=== PATIENT | male | born 1985 | race Caucasian/White ===

== ENCOUNTER 2019-06-20 07:52 | Emergency (ER) | payer SELFPAY ==
[2019-06-20 07:57] VITALS: BP 135/88; PULSE 52; RESP 16; TEMP 36.6; O2SAT 99; BMI 27.8
--- NOTE | 2019-06-20 08:05 | ED.DENTAL ---
HPI - Dental/Oral General Chief complaint: Dental/Oral Stated complaint: Nerve pain in face due to broken tooth Time Seen by Provider: 06/20/19 07:53 Source: patient Mode of arrival: ambulatory Limitations: no limitations History of Present Illness HPI Narrative: 33-year-old male here for evaluation of right upper dental pain. He states that it has been hurting for the past several days. He states he has had pain like this in the past. Has not seen a dentist. He states that he is getting his insurance ?squared away ?currently but plans to see a dentist sometime this week. No fevers. He states that hot and cold and air hurts his tooth. Related Data Previous Rx's Medication Instructions Recorded diazepam [Valium] 5 mg PO Q8HP PRN #10 tab 07/09/16 hydrocodone-acetaminophen [[place]] 1 tab PO Q6HP PRN #10 tab 07/09/16 ibuprofen 800 mg PO TIDP PRN #30 tab 07/09/16 ibuprofen 600 mg PO Q6HP PRN #20 tab 08/02/16 tramadol 50 mg PO Q6HP PRN #10 tab 06/21/17 penicillin V potassium 500 mg PO QID 7 Days #28 tab 06/20/19 tramadol [Ultram] 50 mg PO Q8H PRN #14 tab 06/20/19 Review of Systems Constitutional Constitutional: Denies fever(s) ENT Ears, Nose, Mouth, and Throat: Reports dental pain, Reports mouth pain, Denies throat swelling and Denies tongue swelling Respiratory Respiratory: Denies cough Integumentary/Breasts Skin/Breast: Denies lesions and Denies rash Hematologic/Lymphatic Hematologic/Lymphatic: Denies easy bleeding and Denies easy bruising Allergic/Immunologic Allergic/Immunologic: Denies throat swelling and Denies tongue swelling [facility] Medical History Patient denies medical problems (Inactive) Social History Smoking Status: Current every day smoker Social History Smoking Status: Current every day smoker Exam Initial Vital Signs Initial Vital Signs: Vital Signs Temperature 97.9 F 06/20/19 07:57 Pulse Rate 52 L 06/20/19 07:57 Respiratory Rate 16 06/20/19 07:57 Blood Pressure 135/88 06/20/19 07:57 Pulse Oximetry 99 06/20/19 07:57 Const General: cooperative, well developed and well groomed Orientation: alert and awake HENMT Ears: TM's normal bilaterally Nose: external nose normal Face and sinus: normal facial exam Mouth: moist mucous membranes and No drooling Teeth and gingiva: gingiva normal, caries and poor dentition Throat: posterior oropharynx normal Resp Effort & Inspection: normal respiratory effort Auscultation: clear to auscultation bilaterally Cardio Rate: regular rate Rhythm: regular rhythm Skin Lesions: no lesions Rashes: no rashes Neuro General: alert and awake Cognition: normal cognition Speech: speech normal Extrem General: normal to inspection and capillary refill normal Course Vital Signs Vital signs: Vital Signs - 8 hr 06/20/19 07:57 Temperature 97.9 F Pulse Rate 52 L Respiratory Rate 16 Blood Pressure 135/88 Pulse Oximetry 99 MDM - Dental/Oral MDM Narrative Medical decision making narrative: Patient has poor dentition. He does have a fractured right upper posterior molar. There is no defined drainable abscess here in the emergency department. Has no cellulitis. Will send home with antibiotics and pain medication. We did discuss the use of anti-inflammatories. Informed him that he did need to see a dentist for definitive care. Offered him a dental block however the patient declined. He was given return precautions and follow-up instructions. He expressed understanding and agreement with plan. Discharge Plan Departure Patient Disposition: Home Clinical Impression: Pain, dental Instructions: Tooth Abscess, DI for Dental Pain Activity Restrictions/Additional Instructions: I recommend that you start on a regular course of anti-inflammatories such as Motrin or Naprosyn. You can buy this [id number]. Take the medications as directed. Tomorrow you do need to call a dentist for definitive treatment. Return to the emergency department for new or worsening symptoms Prescriptions: New tramadol [Ultram] 50 mg tablet 50 mg PO Q8H PRN (Reason: pain) Qty: 14 RF: 0 penicillin V potassium 500 mg tablet 500 mg PO QID 7 Days Qty: 28 RF: 0 No Action ibuprofen 800 MG tablet 800 mg PO TIDP PRNQty: 30 RF: 0 hydrocodone-acetaminophen [[place]] 5 MG/325 MG tablet 1 tab PO Q6HP PRNQty: 10 RF: 0 diazepam [Valium] 5 MG tablet 5 mg PO Q8HP PRNQty: 10 RF: 0 ibuprofen 600 MG tablet 600 mg PO Q6HP PRNQty: 20 RF: 0 tramadol 50 MG tablet 50 mg PO Q6HP PRNQty: 10 RF: 0
== END 2019-06-20 08:18 | disposition home or self-care (01) ==
PROVIDERS: Emergency Provider Emergency Medicine
DX: K08.89 Other specified disorders of teeth and supporting structures (principal)
CPT/HCPCS: 99282

== ENCOUNTER 2021-07-01 08:25 | Emergency (ER) | payer OTHER, MEDICAID, SELFPAY ==
[2021-07-01 08:31] VITALS: BP 156/96; PULSE 76; RESP 12; TEMP 36.1; O2SAT 97; BMI 26.1
--- NOTE | 2021-07-01 08:58 | ED_ITS ---
HPI - Ear Problem General Chief complaint: Ear Stated complaint: left ear pain for a week Time Seen by Provider: 07/01/21 09:05 Source: patient Mode of arrival: Ambulatory History of Present Illness HPI Narrative: Patient complains of left ear pain for the past 1 week. Denies any drainage no fever. No prior history ear surgery as a child. Or ear infections. Denies any injury to the ear. Patient states he has developed intolerance in ability to swim under water even shallow depths and causes ear pain. Denies any recent water exposure. Denies any oral or dental pain. Has slight decreased hearing in the left ear. No ringing of the ears. Patient describes pain just medial to the tragus/just before the entrance of the external canal of the left ear. No redness. No swelling. Occasional relief with ibuprofen at home. Related Data Previous Rx's Medication Instructions Recorded diazepam 5 mg tablet (Valium) 5 mg PO Q8HP PRN #10 tab 07/09/16 hydrocodone 5 mg-acetaminophen 325 1 tab PO Q6HP PRN #10 tab 07/09/16 mg tablet ([place]) ibuprofen 800 mg tablet 800 mg PO TIDP PRN #30 tab 07/09/16 ibuprofen 600 mg tablet 600 mg PO Q6HP PRN #20 tab 08/02/16 tramadol 50 mg tablet 50 mg PO Q6HP PRN #10 tab 06/21/17 tramadol 50 mg tablet (Ultram) 50 mg PO Q8H PRN #14 tab 06/20/19 hydrocodone 5 mg-acetaminophen 325 1 tab PO Q6H PRN #7 tab 07/01/21 mg tablet methylprednisolone 4 mg tablets in See Rx Instructions .ROUTE 07/01/21 a dose pack (Medrol ([place]leg)) .COMPLEX #21 each Allergies Allergy/AdvReac Type Severity Reaction Status Date / Time No Known Drug Allergies Allergy Verified 07/01/21 08:34 Review of Systems Review of Systems Narrative: GENERAL: Denies chills, fatigue, malaise, fever, sweats. HEENT: Denies sinus pain, complains ear pain, denies sore throat RESPIRATORY: Denies dyspnea, cough GASTROINTESTINAL: Denies nausea MUSCULOSKELETAL: denies muscle or bony pain SKIN: Denies rash, skin lesions NEUROLOGIC: Denies weakness, numbness ROS Unobtainable: All systems reviewed & are unremarkable except as noted in HPI and below Patient History Medical History (Updated 07/01/21 @ 09:47 by Cedric Pepe MD) Patient denies medical problems Social History Smoking Status: Current every day smoker Smoking Status: Current every day smoker alcohol intake frequency: a few times a month Substance Use Type: marijuana Exam Narrative Exam Narrative: GENERAL: in no distress, not toxic not dyspneic HEAD: Normocephalic. EYES: Pupils equal round No scleral icterus. No injection no discharge ENT: Mucous membranes moist. Examination of the right ear. Nontender tragus. No edema swelling discharge in the external canal. TM is clear. Examination of the left ear. Able to hear whispering and rubbing of the gloves with occlusion of the right external canal. With patient's finger. There is no tenderness of the tragus. No erythema of the external ear. Examination of the external canal there is wax buildup on the posterior surface of the canal. After extensive irrigation with peroxide/saline combination, able to loosen large wax ball. However still needed to use [place] catheter balloon to remove wax ball.. Able to visualize remaining external canal and tympanic membrane. TM is intact. No effusion. No discharge of the canal. No edema swelling of the canal. No abscess or cyst or lesion seen. Hearing remains intact. No bleeding. NECK: Trachea midline. NEURO: AOx4. SKIN: Warm and dry PSYCH: Not anxious, is cooperative Initial Vital Signs Initial Vital Signs: Vital Signs Temperature 96.9 F L 07/01/21 08:31 Pulse Rate 76 07/01/21 08:31 Respiratory Rate 12 07/01/21 08:31 Blood Pressure 156/96 H 07/01/21 08:31 Pulse Oximetry 97 07/01/21 08:31 Course Course Course Narrative: No new issues during course of stay in treatment. No loss of hearing or bleeding. Orders Ordered: Discontinued Medications Hydrogen Peroxide/Benzyl Alcohol (Hydrogen Peroxide 473 Ml Solution) 30 ml TOP NOW ONE Stop: 07/01/21 08:59 Last Admin: 07/01/21 09:21 Dose: 30 ml Documented by: CHAD Prednisone (Prednisone 20 Mg Tablet) 40 mg PO NOW ONE Stop: 07/01/21 09:47 Last Admin: 07/01/21 09:52 Dose: 40 mg Documented by: CHAD Reevaluation(s) Reevaluation #1: Reviewed results with patient after irrigation and wax removal. At this time patient agrees with pain medication. No dissections in the past or problems with pain medication. Agrees with steroid trial as well as there is no signs of infection. May be neurologic in origin, possible trigeminal neuralgia Time: 09:51 Vital Signs Vital signs: Vital Signs - 8 hr 07/01/21 08:31 Temperature 96.9 F L Pulse Rate 76 Respiratory Rate 12 Blood Pressure 156/96 H Pulse Oximetry 97 Medical Decision Making Differential Diagnosis Differential Diagnosis: Otitis media otitis externa, perforated eardrum, abscess, trigeminal neural MDM Narrative Medical decision making narrative: Appropriate for discharge home. Exam reassuring, no signs of infection. No abscess. Possibly trigeminal neuralgia in origin. Patient agrees treatment trial of steroid pack and to follow-up with otolaryngology. No problems with addiction to pain medication the past. Return precautions reviewed patient. Work note provided. Not toxic discharge. Discharge Plan Departure Patient Disposition: Home Clinical Impression: Acute pain of left ear Instructions: DI for Ear Pain-Adult Activity Restrictions/Additional Instructions: Call provided otolaryngology office, Dr. kessler, today for office recheck within a week. Be sure to keep your free of moisture in water or any Q-tips. Return if worsening questions or concerns. Continue steroid pack tomorrow. No driving operating machinery would take prescribed pain medication. May supplement with ibuprofen for your pain. Use [id number] ibuprofen Prescriptions: New hydrocodone-acetaminophen 5-325 mg tablet 1 tab PO Q6H PRN (Reason: pain) Qty: 7 RF: 0 methylprednisolone [Medrol ([place]leg)] 4 mg tablets,dose pack See Rx Instructions .ROUTE .COMPLEX Qty: 21 RF: 0 No Action ibuprofen 800 MG tablet 800 mg PO TIDP PRNQty: 30 RF: 0 hydrocodone-acetaminophen [[place]] 5 MG/325 MG tablet 1 tab PO Q6HP PRNQty: 10 RF: 0 diazepam [Valium] 5 MG tablet 5 mg PO Q8HP PRNQty: 10 RF: 0 ibuprofen 600 MG tablet 600 mg PO Q6HP PRNQty: 20 RF: 0 tramadol 50 MG tablet 50 mg PO Q6HP PRNQty: 10 RF: 0 tramadol [Ultram] 50 mg tablet 50 mg PO Q8H PRN (Reason: pain) Qty: 14 RF: 0 Referrals: Omid Kessler MD [Physician] - Stand Alone Forms: Work Release Note
[2021-07-01] MEDS: HYDROGEN PEROXIDE 473 ML SOLUTION 30 ML TOP (09:21)
--- NOTE | 2021-07-01 09:22 | PC.NURSE ---
Earwax impaction noted in left Ear canal
[2021-07-01] MEDS: predniSONE 20 MG TABLET 40 MG PO (09:52)
== END 2021-07-01 10:06 | disposition home or self-care (01) ==
PROVIDERS: Emergency Provider Emergency Medicine
DX: H92.02 Otalgia, left ear (principal)
CPT/HCPCS: 69209; 99283; 99284

== ENCOUNTER 2022-08-07 14:20 | Emergency (ER) | payer OTHER, MEDICAID, SELFPAY ==
[2022-08-07 14:24] VITALS: BP 153/111; PULSE 95; RESP 18; TEMP 35.9; O2SAT 98; BMI 27.5
--- NOTE | 2022-08-07 14:27 | PC.NURSE ---
pt states he has been drinking a 5th of vodka.
--- NOTE | 2022-08-07 16:17 | PC.NURSE ---
Patient not located in lobby, tile setter supervisor called and voicemail left to update patient it was his turn.
== END 2022-08-07 16:23 | disposition left against medical advice (07) ==
PROVIDERS: Emergency Provider Emergency Medicine
CPT/HCPCS: 99281

== ENCOUNTER 2022-08-09 14:03 | Emergency (ER) | payer OTHER, MEDICAID, SELFPAY ==
--- NOTE | 2022-08-09 14:04 | ED.BACK ---
HPI - Back Pain/Injury <John Burnett PA-C - Last Filed: 08/09/22 16:14> General Chief Complaint: Psychiatric Symptoms Stated Complaint: Back Pain History of Present Illness HPI Narrative: Patient is a 36-year-old male who presents to the emergency room today with chief complaint of back pain for about 2 days. The suicide about 3 days ago and workup 2 days ago with back pain. Describes back pain as being in his mid lower back is slightly radiates to the left. States it also radiates down his left side with left knee and left foot. Describes the pain right now is being about a 4 5 and at its worst about an 8 or 9. States the pain is made worse with standing and walking and made better with sitting and lying. Denies any loss of bowel or bladder function and denies any urinary symptoms. Patient states he had this type of back pain about 5 years ago that was relieved with muscle relaxers. Patient has a secondary complaint of depression anxiety and feeling of helplessness. States he is going through a divorce and he is afraid of losing his and his 7-year-old child. Also states that he been drinking a lot and would like something to help stop drinking and would also want to talk to someone about the drinking. Also elect to talk to someone about depression. Does not have a PCP and would like to be referred to 1. Last states he is not really want to harm himself he just wants to start feeling this way. Related Data Previous Rx's Medication Instructions Recorded diazepam 5 mg tablet (Valium) 5 mg PO Q8HP PRN #10 tabs 07/09/16 hydrocodone 5 mg-acetaminophen 325 1 tab PO Q6HP PRN #10 tabs 07/09/16 mg tablet ([place]) ibuprofen 800 mg tablet 800 mg PO TIDP PRN #30 tabs 07/09/16 ibuprofen 600 mg tablet 600 mg PO Q6HP PRN #20 tabs 08/02/16 tramadol 50 mg tablet 50 mg PO Q6HP PRN #10 tabs 06/21/17 tramadol 50 mg tablet (Ultram) 50 mg PO Q8H PRN pain #14 tabs 06/20/19 hydrocodone 5 mg-acetaminophen 325 1 tab PO Q6H PRN pain #7 tabs 07/01/21 mg tablet methylprednisolone 4 mg tablets in See Rx Instructions PO .COMPLEX 07/01/21 a dose pack (Medrol (Oleg)) #21 ea methocarbamol 750 mg tablet 750 mg PO TID #15 tabs 08/09/22 Allergies Allergy/AdvReac Type Severity Reaction Status Date / Time No Known Drug Allergies Allergy Verified 08/09/22 14:08 Review of Systems <John Burnett PA-C - Last Filed: 08/09/22 16:14> Review of Systems Narrative: R.O.S.: General: No fever, chills or fatigue. Cardiovascular: No chest pain or palpitations Respiratory: No S.O.B. HEENT: No congestion, ear pain, rhinorrhea, sore throat or tinnitus Gastrointestinal: No nausea or vomiting : No urinary concerns Skin: No rash or associated abnormalities Musculoskeletal: Back pain Neurological: Awake, alert. Depression and suicidal ideations. Patient History <John Burnett PA-C - Last Filed: 08/09/22 16:14> Medical History (Updated 08/09/22 @ 16:00 by John Burnett PA-C) Patient denies medical problems Social History Smoking Status: Current every day smoker Smoking Status: Current every day smoker alcohol intake frequency: 3 or more drinks per day Substance Use Type: marijuana Exam <John Burnett PA-C - Last Filed: 08/09/22 16:14> Narrative Exam Narrative: Physical Exam: ? General: normal appearance, well developed, well nourished, alert, and awake. Not in acute distress. ? Head: Normocephalic, no lesions. Chest: Lungs CTAB, no rales, rhonchi or wheezes. ?? Heart: RRR, no murmurs, rubs or gallops. Eyes: PERRLA, EOM's full, conjunctivae clear. ? Neuro: Physiological, no localizing findings, CN3-12 intact. ?? Extremities/back: Patient has bilateral paraspinal tenderness at the lower lumbar superior buttocks crease area. Patient also has positive straight leg raise on the left side. Patient able to tandem walk but with difficulty. Patient unable to tiptoe walk or heel walk. DTRs intact at patellar tendons. Patient also has intact sensation to touch in the bilateral lower extremities. ? ? Skin: Normal, no rashes, no lesions noted. ?? PSYCHIATRIC: The mood is good, no blunted affect. Speech is clear. Thought process is linear, thought content is appropriate. The voice is without significant inflection. Gastrointestinal: Soft; NT; ND; Pos BS with Neg. rebound tenderness. No scars or major deformities noted on Visual Inspection. Initial Vital Signs Initial Vital Signs: Vital Signs Temperature 96.9 F L 08/09/22 14:08 Pulse Rate 100 H 08/09/22 14:08 Respiratory Rate 18 08/09/22 14:08 Blood Pressure 147/98 H 08/09/22 14:08 Pulse Oximetry 98 08/09/22 14:08 Oxygen Delivery Method 08/09/22 14:08 <Lazaro Gaston DO - Last Filed: 08/16/22 07:06> Initial Vital Signs Initial Vital Signs: Vital Signs Temperature 96.9 F L 08/09/22 14:08 Pulse Rate 100 H 08/09/22 14:08 Respiratory Rate 18 08/09/22 14:08 Blood Pressure 147/98 H 08/09/22 14:08 Pulse Oximetry 98 08/09/22 14:08 Oxygen Delivery Method 08/09/22 14:08 Course <John Burnett PA-C - Last Filed: 08/09/22 16:14> Orders Ordered: Discontinued Medications Sodium Chloride (Normal Saline 0.9%) 1,000 mls @ 150 mls/hr IV CONT [facility] Last Admin: 08/09/22 15:32 Dose: Not Given Documented By: AT Ketorolac Tromethamine (Ketorolac 30 Mg/Ml Vial) 30 mg IM NOW ONE Stop: 08/09/22 14:33 Last Admin: 08/09/22 14:56 Dose: 30 mg Documented By: RL Vital Signs Vital signs: Vital Signs - 8 hr 08/09/22 14:08 Temperature 96.9 F L Pulse Rate 100 H Respiratory Rate 18 Blood Pressure 147/98 H Pulse Oximetry 98 Oxygen Delivery Method Room Air <Lazaro Gaston DO - Last Filed: 08/16/22 07:06> Orders Ordered: Discontinued Medications Sodium Chloride (Normal Saline 0.9%) 1,000 mls @ 150 mls/hr IV CONT [facility] Last Admin: 08/09/22 15:32 Dose: Not Given Documented By: AT Ketorolac Tromethamine (Ketorolac 30 Mg/Ml Vial) 30 mg IM NOW ONE Stop: 08/09/22 14:33 Last Admin: 08/09/22 14:56 Dose: 30 mg Documented By: OSBALDO Vital Signs Vital signs: Vital Signs - 8 hr 08/09/22 14:08 Temperature 96.9 F L Pulse Rate 100 H Respiratory Rate 18 Blood Pressure 147/98 H Pulse Oximetry 98 Oxygen Delivery Method Room Air MDM - Back Pain/Injury <John Burnett PA-C - Last Filed: 08/09/22 16:14> Lab Data Result diagrams: 08/09/22 15:20 08/09/22 15:20 Labs: Lab Results 08/09/22 08/09/22 08/09/22 Range/Units 15:16 15:20 15:20 WBC 6.0 (4.5-11.0) X10^3/uL RBC 5.57 (4.5-5.9) X10^6/uL Hgb 17.3 (13.5-17.5) g/dL Hct 49.9 (41-53) % MCV 89.6 (80-100) fL MCH 31.1 (26-34) PG MCHC 34.7 (30-36) % RDW 13.5 (11.6-14.8) % Plt Count 153 (150-400) X10^3/uL Neut % (Auto) 70.1 (50-75) % Lymph % (Auto) 19.3 L (25-40) % [place] % (Auto) 9.4 (3-14) % Eos % (Auto) 0.4 L (2-4) % Baso % (Auto) 0.8 (0-2) % Neut # (Auto) 4200 (5129-9120) /uL Lymph # (Auto) 1200 (4542-6299) /uL [place] # (Auto) 600 (0-900) /uL Eos # (Auto) 0 (0-450) /uL Baso # (Auto) 0 (0-100) /uL Sodium 136 L (137-145) mmol/L Potassium 3.9 (3.4-5.1) mmol/L Chloride 100 (98-107) mmol/L Carbon Dioxide 19 L (22-32) mmol/L BUN 11 (9-20) mg/dL Creatinine 0.78 (0.66-1.25) mg/dL Estimated GFR > 60 (>60) mL/min BUN/Creatinine Ratio 14.1 (6-22) Glucose 80 (70-100) mg/dL Calcium 9.1 (8.4-10.2) mg/dL Total Bilirubin 1.6 H (0.2-1.3) mg/dL AST 234 H (17-59) IU/L ALT 126 H (<50) IU/L Alkaline Phosphatase 89 (38-126) U/L Total Protein 8.5 H (6.3-8.2) g/dL Albumin 4.7 (3.5-5.0) g/dL Globulin 3.8 (1.7-4.1) g/dL Albumin/Globulin Ratio 1.2 (1.0-2.8) Salicylates < 1.0 (<20) mg/dL U Opiates 300ng/mL cut Negative (Negative) Ur Oxycodone Screen Negative (Negative) Urine Methadone Screen Negative (Negative) Acetaminophen < 10 (10-30) ug/mL Ur Barbiturates Screen Negative (Negative) U Tricyclic Antidepress Negative (Negative) Ur Phencyclidine Scrn Negative (Negative) Ur Amphetamines Screen Negative (Negative) U Methamphetamines Scrn Negative (Negative) Ur MDMA Scrn (Ecstasy) Negative (Negative) U Benzodiazepines Scrn Negative (Negative) Urine Cocaine Screen Negative (Negative) U Marijuana (THC) Screen Positive H (Negative) Ethyl Alcohol 121 H ( - 10) mg/dL MDM Narrative Medical decision making narrative: Patient presents to the emergency room with chief complaint of back pain and also has complaint of ETOH abuse and possible suicidal ideations. Toradol was ordered for back pain patient was referred to social work and labs ordered to prepare patient for possible detox referral. Discussed patient with social work and group social worker would like to refer patient to an inpatient detox but states the patient declines at this time because he does not have someone take care of his dog. Social work is looking into trying to find some resources for the patient regarding his dog. Also discussed with social work possibility of prophylactic benzodiazepine with the patient and his withdrawal symptoms given the patient has a CIWA score of 9. Concerns were with the patient using the benzodiazepines to harm himself. Plan for now is to get the patient into a detox facility and have them monitor all of his meds and administration. electrical worker has given the patient her contact information and suggest the patient follow up with her in regards to possible referral to detox facility in the future. Patient discharged with muscle relaxers and given the number to reach out in regards to secure a primary care provider. Patient also advised to return emergency room if any emergent concerns arise. <Lazaro Gaston DO - Last Filed: 08/16/22 07:06> Lab Data Labs: Lab Results 08/09/22 08/09/22 08/09/22 Range/Units 15:16 15:20 15:20 WBC 6.0 (4.5-11.0) X10^3/uL RBC 5.57 (4.5-5.9) X10^6/uL Hgb 17.3 (13.5-17.5) g/dL Hct 49.9 (41-53) % MCV 89.6 (80-100) fL MCH 31.1 (26-34) PG MCHC 34.7 (30-36) % RDW 13.5 (11.6-14.8) % Plt Count 153 (150-400) X10^3/uL Neut % (Auto) 70.1 (50-75) % Lymph % (Auto) 19.3 L (25-40) % [place] % (Auto) 9.4 (3-14) % Eos % (Auto) 0.4 L (2-4) % Baso % (Auto) 0.8 (0-2) % Neut # (Auto) 4200 (7456-8350) /uL Lymph # (Auto) 1200 (0449-6181) /uL [place] # (Auto) 600 (0-900) /uL Eos # (Auto) 0 (0-450) /uL Baso # (Auto) 0 (0-100) /uL Sodium 136 L (137-145) mmol/L Potassium 3.9 (3.4-5.1) mmol/L Chloride 100 (98-107) mmol/L Carbon Dioxide 19 L (22-32) mmol/L BUN 11 (9-20) mg/dL Creatinine 0.78 (0.66-1.25) mg/dL Estimated GFR > 60 (>60) mL/min BUN/Creatinine Ratio 14.1 (6-22) Glucose 80 (70-100) mg/dL Calcium 9.1 (8.4-10.2) mg/dL Total Bilirubin 1.6 H (0.2-1.3) mg/dL AST 234 H (17-59) IU/L ALT 126 H (<50) IU/L Alkaline Phosphatase 89 (38-126) U/L Total Protein 8.5 H (6.3-8.2) g/dL Albumin 4.7 (3.5-5.0) g/dL Globulin 3.8 (1.7-4.1) g/dL Albumin/Globulin Ratio 1.2 (1.0-2.8) Salicylates < 1.0 (<20) mg/dL U Opiates 300ng/mL cut Negative (Negative) Ur Oxycodone Screen Negative (Negative) Urine Methadone Screen Negative (Negative) Acetaminophen < 10 (10-30) ug/mL Ur Barbiturates Screen Negative (Negative) U Tricyclic Antidepress Negative (Negative) Ur Phencyclidine Scrn Negative (Negative) Ur Amphetamines Screen Negative (Negative) U Methamphetamines Scrn Negative (Negative) Ur MDMA Scrn (Ecstasy) Negative (Negative) U Benzodiazepines Scrn Negative (Negative) Urine Cocaine Screen Negative (Negative) U Marijuana (THC) Screen Positive H (Negative) Ethyl Alcohol 121 H ( - 10) mg/dL Discharge Plan Departure Patient Disposition: Home Clinical Impression: Back pain, History of ETOH abuse Instructions: DI for Low Back Pain, DI for Alcohol Use Disorder Activity Restrictions/Additional Instructions: *You have been diagnosed with low back pain and history of alcohol abuse. I have ordered muscle relaxers to help with the back pain . I also suggest to call [phone] to request a primary care provider. Suggest you contact the primary care provider in regards to follow-up on your ETOH abuse and potential mental health disorders. Also suggest you continue to follow-up with the group social worker you were introduced to today at this clinic. He has been working with you in regards to inpatient withdrawal referrals. Also please return to the emergency room should any emergent concerns arise.] *What to do: *Please continue to take your regular medications as directed. [ ] New medication prescriptions sent to your pharmacy: [ ] [x] New medication written as a paper prescription [ ] No new medications given *Please follow up with your primary care provider in 2-3 days, call for an appointment. Let them know you were seen in the Emergency Department and that we ask that you be seen in follow up. We will electronically transmit a record of today's note if your PCP is in our system *If you do not have a primary care provider please contact the [facility] Resource line at [phone]. They will ask some questions about your medical history and help get you set up with a doctor in the community. *Return to Emergency Department if you should have any new, worsening or concerning symptoms, such as [fever greater than 101 F, shaking chills, worsening pain, persistent vomiting or other bothersome symptoms] Prescriptions: New methocarbamol 750 mg tablet 750 mg PO TID Qty: 15 0RF No Action ibuprofen 800 MG tablet 800 mg PO TIDP PRNQty: 30 0RF hydrocodone-acetaminophen [[place]] 5 MG/325 MG tablet 1 tab PO Q6HP PRNQty: 10 0RF diazepam [Valium] 5 MG tablet 5 mg PO Q8HP PRNQty: 10 0RF ibuprofen 600 MG tablet 600 mg PO Q6HP PRNQty: 20 0RF tramadol 50 MG tablet 50 mg PO Q6HP PRNQty: 10 0RF tramadol [Ultram] 50 mg tablet 50 mg PO Q8H PRN (Reason: pain) Qty: 14 0RF hydrocodone-acetaminophen 5-325 mg tablet 1 tab PO Q6H PRN (Reason: pain) Qty: 7 0RF methylprednisolone [Medrol (Oleg)] 4 mg tablets,dose pack See Rx Instructions .ROUTE .COMPLEX Qty: 21 0RF Rx Instructions: orally per package directions Visit Report Forms: Patient Portal/API <Lazaro Gaston DO - Last Filed: 08/16/22 07:06> [facility] ED Attending Vondaature Attestation: I was immediately available in the department for consultation. This documentation has been reviewed and I agree with assessment and plan. Supervised by Lazaro Gaston DO
[2022-08-09 14:08] VITALS: BP 147/98; PULSE 100; RESP 18; TEMP 36.1; O2SAT 98; BMI 26.1
[2022-08-09] MEDS: KETOROLAC 30 MG/ML VIAL IM (14:56)
[2022-08-09 15:23] LABS: UR Morphine/Opiate cutoff 300 Negative (Negative); Ur Creatinine Normal (Normal); Ur Specific Gravity Normal (Normal); Urine Amphetamines Negative (Negative); Urine Barbiturates Negative (Negative); Urine Benzodiazepines Negative (Negative); Urine Cocaine Negative (Negative); Urine MDMA Negative (Negative); Urine Methadone Negative (Negative); Urine Methamphetamines Negative (Negative); Urine Oxycodone Negative (Negative); Urine Phencyclidine Negative (Negative); Urine Tetrahydrocannabinol Positive (Negative); Urine Tricyclic Antidepressant Negative (Negative); Urine pH Normal (Normal)
[2022-08-09 15:28] LABS: Add Manual Diff / Slide Review NO; Basophils Absolute Auto 0 /uL (0-100); Basophils Percent Auto 0.8 % (0-2); Eosinophils Absolute Auto 0 /uL (0-450); Eosinophils Percent Auto 0.4 % (2-4); Hematocrit 49.9 % (41-53); Hemoglobin 17.3 g/dL (13.5-17.5); Lymphocytes Absolute Auto 1200 /uL (1100-4500); Lymphocytes Percent Auto 19.3 % (25-40); Mean Corpuscular HGB Conc 34.7 % (30-36); Mean Corpuscular Hemoglobin 31.1 PG (26-34); Mean Corpuscular Volume 89.6 fL (80-100); Monocytes Absolute Auto 600 /uL (0-900); Monocytes Percent Auto 9.4 % (3-14); Neutrophils Absolute Auto 4200 /uL (1500-7000); Neutrophils Percent Auto 70.1 % (50-75); Platelet Count 153 X10^3/uL (150-400); Red Blood Cell Count 5.57 X10^6/uL (4.5-5.9); Red Cell Distribution Width 13.5 % (11.6-14.8)
[2022-08-09 15:39] LABS: Acetaminophen < 10 ug/mL (10-30); Alanine Aminotransferase 126 IU/L (<50); Albumin 4.7 g/dL (3.5-5.0); Albumin Globulin Ratio 1.2 (1.0-2.8); Alkaline Phosphatase 89 U/L (38-126); Aspartate Aminotransferase 234 IU/L (17-59); BUN Creatinine Ratio 14.1 (6-22); Bilirubin Total 1.6 mg/dL (0.2-1.3); Blood Urea Nitrogen 11 mg/dL (9-20); Calcium 9.1 mg/dL (8.4-10.2); Carbon Dioxide 19 mmol/L (22-32); Chloride 100 mmol/L (98-107); Estimated Glomerular Filt Rate > 60 mL/min (>60); Ethanol (ETOH) 121 mg/dL; Globulin 3.8 g/dL (1.7-4.1); Glucose 80 mg/dL (70-100); HEMOLYSIS < 15 (0-50); Potassium 3.9 mmol/L (3.4-5.1); Salicylate < 1.0 mg/dL (<20); Sodium 136 mmol/L (137-145); Total Protein 8.5 g/dL (6.3-8.2)
--- NOTE | 2022-08-09 16:06 | CM.DANOTE ---
DCP ED PT ESCORT: 08/09/22 16:10 - CM Dump Grounds Checker Note by Brittany Patel, PT ESCORT Acct Num: [id number] : 1985 Patient Age 36 Discharge Planning/Care Management PT ESCORT - [place] Machine Feeder Assessment Start: 08/09/22 15:45 Freq: Status: Active Protocol: Document 08/09/22 15:45 TM (Rec: 08/09/22 16:05 TM [id number]) PT ESCORT/[place] Machine Feeder Assessment Start date 08/09/22 Visit Start Time 15:00 End date 08/09/22 Visit End Time 15:46 Total time Care Management spent on 46 minutes patient visit-in minutes Presenting Problem Patient is a 36-year-old male who presents to the emergency room today with chief complaint of back pain for about 2 days. Pt also presents with depression, anxiety, feelings of helplessness and a desire to quit drinking alcohol. Pt reports feeling overwhelmed with everything going on in his life and states, I wish I wasn't around sometimes. Pt denies history of suicide attempt or self-harm. While patient has thought about plans (sucking exhaust from car or jumping off bridge) he states he would never try because of his son. Pt reports that he is also afraid of heights. Precipitating Event(s) Pt reports that he saw his ex partner at his son's birthday with her new partner and that triggered him to start drinking again. Patient Strengths Pt reports being a good father . Protective factors - pt's son, forward thinking to wanting a and a home. Current Behavioral Health Provider(s) None. Include Facility, Provider, Ph. # Psych. Hx Mental Health and Chemical No formal diagnoses. History Dependency of meth use, addiction to pain meds, heavy alcohol use. Psychiatric Hospitalizations (date(s)/ None. location) Psychosocial information & Support Pt reports limited social Systems supports. Dad resides in [facility]. Pt reports that the mother of his child is a social support. 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 Presenting Problem Pt reports drinking a fifth of alcohol daily. Precipitating Event(s) Pt reports that seeing his ex with her new partner triggered him to start using. Patient Strengths Being a good father. Current Behavioral Health Provider(s) None. Include Facility, Provider, Ph. # Family Hx of Behavioral Abuse Family history of subtance use . Father has alcohol use disorder, mother is drug addict. Rehab Facilities? ((Date(s), Location(s) No history of attendance. ) History of Withdrawal? Seizures? Pt reports that he woke up on the ground last week and does not remember how he got there. Pt reports having bitten his tongue during this episode. Pt reports feeling withdrawl symptoms in the morning following a day of drinking. Symptoms include, sweats, tremors, feeling of impending doom. Psychosocial information & Support Pt reports limited social Systems supports. Dad resides in [facility]. Pt reports that the mother of his child is a social support. Orientation (Person/Place/Time) Pt oriented to person, place, and time. Stated Mood Pt reports he is overwhelmed. Affect (Congruent with Mood?) Normal affect. Somewhat depressed, congruent with mood . Thought Content - Specify/Describe Intact. Denies AH, VH. No Obsessions, Delusions, Hallucinations delusional thinking. Thought Processes (Nyycser-Tjzcvlvi-Urtr logical. Pvmjopsh-Bqjqsxgu-Hphzfbhzfi- Ozdyxyupoaeefa-Pvvlqoq-Yehjllmaxftx- Thought Blocking) Speech (Aullba-Jtdp-Itkywxy-Rapid-Soft- normal. Loud-Pressured) Motor (Ehldqj-Mqkwruqva-Cryl-Other) normal. Insight (Gisk-Koia-Wrqq/Limited) Insight fair. Judgement (Spdc-Zyoy-Itjg/Limited) Fair. Impulse Control (Adequate-Impaired) not tested. Memory (Tlccqsetu-Bqqdwa-Pigmah, intact. Impaired-Intact) Concentration (Intact-Impaired) Intact. Attention (Intact-Impaired) Intact. Behavior (Appropriate-Inappropriate) appropriate. Suicidal Ideation (Plan) No Homicidal Ideation (Plan) No Intervention SW met pt at bedside to complete evaluation. Pt reports being a heavy drinker with a desire to quit. Pt reports that he drinks a fifth of alcohol daily and generally experiences withdrawl symptoms in the morning. Pt is interested in resources for therapists, pcp, and [facility] treatment. SW asked pt if he would be interested in medically assisted detox but pt reports concern finding someone to watch his dog. SW did research and informed pt that the [facility] offers boarding for $22 a day for hospitalized patients, when they have available space. Pt reports that he could not afford that right now but will consider that in the future. Pt reports that he will think about options for people that can watch his dog and come back to the ED when he would like to be placed for detox. SW assessed pt's depression and risk for suicide. Pt reports that he has fleeting thoughts of suicide. When asked about a plan, pt reports that he would probably suck the exhaust from a car or jump off of a bridge. Pt reports that he has never attempted suicide and does not believe he would ever act on his thoughts. Protective factors include his son and future plans. Pt provided with information on crisis lines in area. SW provided patient with a list of in network PCPs, local mental health resources, and local [facility] resources. Pt understands the danger of alcohol withdrawls and the importance of being medically monitored while detoxing from alcohol. SW discussed plan of care with provider and agreed that pt is safe to discharge home. RA Plan Pt provided with resources. Plan for pt to discharge home with no futher CM needs. Pt understands the importance of medically assisted detox and will come back to the ED if he would like to be placed at a detox facility.
== END 2022-08-09 16:20 | disposition home or self-care (01) ==
PROVIDERS: Emergency Provider Physician Assistant
DX: M54.9 Dorsalgia, unspecified (principal); F10.11 Alcohol abuse, in remission
CPT/HCPCS: 36415; 80053; 80305; 80320; 80329; 85025; 96372; 99283; 99284; G0480; J1885

== ENCOUNTER → 2023-02-16 12:09 | Outpatient (CLI) | payer OTHER, MEDICAID, SELFPAY ==
--- NOTE | 2023-02-16 12:11 | DI.RAD.S_ITS ---
PROCEDURE: XR LUMBAR SPINE 2-3V INDICATIONS: low back pain TECHNIQUE: 3 views of the lumbar spine were acquired. COMPARISON: None. FINDINGS: Bones: 5 qhf-uru-fvywmbs vertebrae are present. There is mild leftward curvature of lumbar spine centered at L3 level. Age indeterminate superior endplate anterior wedge compression deformity at L1 level is seen with up to 10 percent loss of L1 vertebral body height anteriorly. Mild degenerative endplate changes are noted throughout lumbar spine. No suspicious bony lesions. Soft tissues: Overlying bowel gas pattern is normal. No suspicious soft tissue calcifications. IMPRESSION: 1. Age indeterminate superior endplate anterior wedge compression deformity at L1 level as above. Mild degenerative disc disease throughout lumbar spine. No other compression fracture or spondylolisthesis. 2. Mild scoliosis as above. Dictated by: Patrick Cornell M.D. on 02/16/2023 at 13:57 Approved by: Patrick Cornell M.D. on 02/16/2023 at 13:58
== END ==
PROVIDERS: PCP Family Medicine; Referring Provider Family Medicine; Visit Provider Family Medicine
DX: M48.56XA Collapsed vertebra, not elsewhere classified, lumbar region, initial encounter for fracture (principal); M51.36 Other intervertebral disc degeneration, lumbar region; M41.9 Scoliosis, unspecified; M54.50 Low back pain, unspecified
CPT/HCPCS: 72100

== ENCOUNTER 2023-02-25 16:26 | Outpatient (RCR) | payer OTHER, MEDICAID, SELFPAY ==
--- NOTE | 2023-02-25 17:56 | PT.OIE ---
Current Diagnoses Low back pain, unspecified (02/25/23) Muscle spasm of back (02/25/23) Wedge compression fracture of first lumbar vertebra, initial encounter for closed fracture (02/25/23) Past Medical History (Last Updated 02/17/23 @ 11:35 by Bridget More DO) Patient denies medical problems Wedge compression fracture of L1 vertebra Visit Care Team Role Provider Type Bridget More DO Attending Provider Physician Family Provider Primary Care Provider Referring Provider Specialty: Family Practice Address: [address] [place] [address], [facility] [address], [place], [facility] Email: [email or web address] Physical Therapy Initial Evaluation PT-OP-A Visit Information Start: 02/24/23 13:36 Freq: Status: Active Protocol: Document 02/25/23 16:25 [facility] (Rec: 02/25/23 17:56 [facility] [id number]) Out-Patient Physical Therapy Visit Information Visit Information Visit Type Initial Evaluation Visit Start Time 16:50 Visit Stop Time 17:35 Total Visit Minutes 45 Visit Number 1 Number of FRENCH TRANSLATOR Visits 0 PT-OP-B Current Condition Start: 02/24/23 13:36 Freq: Status: Active Protocol: Document 02/25/23 16:25 [facility] (Rec: 02/25/23 17:56 [facility] [id number]) Current Condition History of Current Condition Onset Date Jul 2022 Current Complaints LBP w/left leg pain History of Current Condition Pt reports the only thing he can think of is he had done a 10 mile hike then was pulling in the sailboat in and it pulled away from the dock so he had to yank. The next day he couldn't stand. He had a lot of pain for a week so went to ER (jul 2022). It was bad for 2-3 months stretching daily, eating well, hot/cold packs, rubs, drinking water. It was getting better then it was getting worse. now L knee feels really painful and med knee is numb. Notes he has bad L hip pain. Pain starts into LB then goes into hip and lat hip thigh and lower leg when coughing and sneezing. [place] and was fixing a car but couldn't so bought a different car. Pt reports he typically is a stomach sleeper but he cannot lay on stomach. He has had pain down his leg that was off /on in the past where his leg even gave out but it would go away within a few days. 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 He cannot work as he cannot stand for long. On a perfect day, he can stretch out and move for about 1 hr at max before laying down gain. Reports YUSUF recently now. He has hydrocodone, mm relaxors, gabapentin and tylenol and ibuprofen occ. He typically takes this during the day to allow him to do typical things . Sometimes he has to use the electric carts at the [employer]. Denies bowel or bladder changes. Occ LB hurts w/bowel movements. Prior Treatments and Tests xray report: Bones: 5 non-rib -bearing vertebrae are present . There is mild leftward curvature of lumbar spine centered at L3 level. Age indeterminate superior endplate anterior wedge compression deformity at L1 level is seen with up to 10 percent loss of L1 vertebral body height anteriorly. Mild degenerative endplate changes are noted throughout lumbar spine. No suspicious bony lesions. Treatment Goals Patient/Caregiver Goals get back to work, be abl eto wallk, be able to do stuff w/ son (7 years old) PT-OP-C Subjective Start: 02/24/23 13:36 Freq: Status: Active Protocol: Document 02/25/23 16:25 [facility] (Rec: 02/25/23 17:56 [facility] [id number]) Patient Questionnaires Oswestry Low Back Index Oswestry Score 20/50 OP-PT Pain Assessment Location LB Pain Location Details L LB Scale Used best:2/10 worst:10/10 Description Sharp Description- Other knee feels like hot knife under kneecap, tabor/itches Frequency Constant Radiating Location L hip w/lat thigh and lower leg pain & knee pain ( typically w/LBP) Pain Aggravating Factors Activity,Standing,Walking Pain Alleviating Factors Cold,Heat,Medication,Sitting Other Pain Alleviating Factors stretches, laying on back, R s /l PT-OP-G Mobility & Gait Start: 02/24/23 13:36 Freq: Status: Active Protocol: Document 02/25/23 16:25 [facility] (Rec: 02/25/23 17:56 [id number] OP Gait Assessment Comments Gait Comments Dec LLE stance time, dec step length, fwd bent over PT-OP-J Posture/Palpation/Skin Start: 02/24/23 13:36 Freq: Status: Active Protocol: Document 02/25/23 16:25 [facility] (Rec: 02/25/23 17:56 [id number] Posture Evaluation Comments Posture Comments signficiant L pelvic shear and R SB. can adjust shear if SB L; unable to palpate his iliac crest on L d/t mm tightness; pt does not bear much wt onto LLE in standing and cannot stand extended. Stands slightly flexed fwd PT-OP-K Range of Motion Start: 02/24/23 13:36 Freq: Status: Active Protocol: Document 02/25/23 16:25 [facility] (Rec: 02/25/23 17:56 [id number]) Lumbar Spine Range of Motion Lumbar Spine Active Percentage Flexion 20 Extension 10 Rotation Left 20 Rotation Right 70 Lateral Flexion Left 50 Lateral Flexion Right 75 Comments pain down leg w/L rotation; pain most w/L rot, flex & ext PT-OP-L Special Tests Start: 02/24/23 13:36 Freq: Status: Active Protocol: Document 02/25/23 16:25 [facility] (Rec: 02/25/23 17:56 [id number]) Special Tests Lumbar Spine Special Tests Straight Leg Raise Test Results R HS tightness; L pain around 30 deg PT-OP-Q Treatments Start: 02/24/23 13:36 Freq: Status: Active Protocol: Document 02/25/23 16:25 [facility] (Rec: 02/25/23 17:56 [id number]) Manual Therapy Treatment Soft Tissue Mobilization QL Body Location L Mobilization Type Rolling Intensity/Depth Superficial Body Position Sidelying glute Body Location L Mobilization Type Rolling,Sustained Pressure Intensity/Depth Moderate Body Position Sidelying Self-Care/Home Management Treatment Education Other Education HEP: QL stretches, SLR, SKTC, figure 4, piriformis stretches PT-OP-T Assessment and Plan Start: 02/24/23 13:36 Freq: Status: Active Protocol: Document 02/25/23 16:25 [facility] (Rec: 02/25/23 17:56 [facility] [id number]) Physical Therapy Assessment Rehab Potential Rehabilitation Potential Fair Evaluation Complexity Number of Personal Factors/Comorbidities 3 or More Number of Body Systems Impaired 4 or More Clinical Presentation at Evaluation Unstable Impairments Impairments Activity Tolerance,Balance, Functional Activities, Functional Mobility,Gait,Pain, Posture,ROM,Soft Tissue Mobility,Strength Other Concerns Barriers to Rehabilitation insurance is very limited w/ visits so would benefit from 2x/wk but will not do d/t limit of visits; pt unable to work, pt has pain w/driving Goals ROM Prison Goal (LTG) Pt will be able to demonstrate full AROM of spine w/o inc pain to allow performance of ADLs and work related activties w/o inc pain. LTG Duration 05/07/23 activities Impairment can stand no longer than 1 hr before pain requiring laying down to rest Short Term Goal (STG) Pt will be able to be upright for at least 2 hours at a time before needing to lay down. STG Duration 04/18/23 Prison Goal (LTG) pt will be able to walk as he needs and stand as needed for daily activities w/o inc pain. LTG Duration 05/20/23 Assessment Summary Assessment Pt presents w/severe L sided LBP that radiates into L hip and L Lat thigh and lower leg and has all around burning pain of knee w/med knee numbness. He is unable to stand or walk for any significant time d/t pain and amb in w/very bent over posture and dec L stance time w/signfiicant pelvic shear and oppsite SB. He has very limited flex/ext along w/L rotation and mild to mod w/all other motions. Pt was not tested w/strength testing d/t pt presenting w/signfiicant pain. He has been doing stretches from friend in PT school and they give mild relief at the time, but he has been in severe pain since July the day after doing a 10 mile hike and having to pull his boat in hard to the dock w/o notable injury until the next AM when pain started. D/t this severity of symptoms and the xray showing age indeterminate L1 wedge compression fracture, plan to wait to start PT until after MRI to deam if PT is appropriate or pt needs more immediate tension from spinal specialist. He would benefit from these referrals to (ortho /neuro surgery and sports/ operations and maintenance specialist clinic) d/t the severity and length of his pain. Physical Therapy Plan Frequency and Duration Frequency of Treatment 1x/Week Duration of treatment (weeks) 12 Plan of Care Start Date 02/25/23 Plan of Care End Date 05/20/23 Therapeutic Interventions Therapeutic Interventions Balance Training,Gait Training ,Home Exercise Program,Joint Mobilizations,Manual Therapy, Neuromuscular Re-education, Orthotic/Prosthetic Management ,Patient/Caregiver Education, Self-Care/Home Management,Soft Tissue Mobilization,Taping, Therapeutic Activities, Therapeutic Exercises Modalities Cold Pack/Ice Massage,Electric Stimulation,Hot Packs, Infrared Therapy,Ultrasound Next Visit Focus/Plan Next Note Type Treatment Note Next Visit Plan short visits d/t insurance limits; make plan after MRI-pt may benefit from seeing ortho and/or operations and maintenance specialist
--- NOTE | 2023-02-25 17:56 | PT.OPPOC ---
Physical, Occupational & Speech Therapy At [facility] Current Diagnoses Low back pain, unspecified (02/25/23) Muscle spasm of back (02/25/23) Wedge compression fracture of first lumbar vertebra, initial encounter for closed fracture (02/25/23) Visit Care Team Role Provider Type Bridget More DO Attending Provider Physician Family Provider Primary Care Provider Referring Provider Specialty: [facility] Practice Address: [address] [place] [address], [address], [address] Email: [email or web address] Plan Of Care PT-OP-T Assessment and Plan Start: 02/24/23 13:36 Freq: Status: Active Protocol: Document 02/25/23 16:25 [facility] (Rec: 02/25/23 17:56 [facility] [id number]) Physical Therapy Assessment Rehab Potential Rehabilitation Potential Fair Evaluation Complexity Number of Personal Factors/Comorbidities 3 or More Number of Body Systems Impaired 4 or More Clinical Presentation at Evaluation Unstable Impairments Impairments Activity Tolerance,Balance, Functional Activities, Functional Mobility,Gait,Pain, Posture,ROM,Soft Tissue Mobility,Strength Other Concerns Barriers to Rehabilitation insurance is very limited w/ visits so would benefit from 2x/wk but will not do d/t limit of visits; pt unable to work, pt has pain w/driving Goals ROM Field Automobile Adjuster Goal (LTG) Pt will be able to demonstrate full AROM of spine w/o inc pain to allow performance of ADLs and work related activties w/o inc pain. LTG Duration 05/07/23 activities Impairment can stand no longer than 1 hr before pain requiring laying down to rest Short Term Goal (STG) Pt will be able to be upright for at least 2 hours at a time before needing to lay down. STG Duration 04/18/23 Field Automobile Adjuster Goal (LTG) pt will be able to walk as he needs and stand as needed for daily activities w/o inc pain. LTG Duration 05/20/23 Assessment Summary Assessment Pt presents w/severe L sided LBP that radiates into L hip and L Lat thigh and lower leg and has all around burning pain of knee w/med knee numbness. He is unable to stand or walk for any significant time d/t pain and amb in w/very bent over posture and dec L stance time w/signfiicant pelvic shear and oppsite SB. He has very limited flex/ext along w/L rotation and mild to mod w/all other motions. Pt was not tested w/strength testing d/t pt presenting w/signfiicant pain. He has been doing stretches from friend in PT school and they give mild relief at the time, but he has been in severe pain since July the day after doing a 10 mile hike and having to pull his boat in hard to the dock w/o notable injury until the next AM when pain started. D/t this severity of symptoms and the xray showing age indeterminate L1 wedge compression fracture, plan to wait to start PT until after MRI to deam if PT is appropriate or pt needs more immediate tension from spinal specialist. He would benefit from these referrals to (ortho /neuro surgery and sports/ substance abuse specialist clinic) d/t the severity and length of his pain. Physical Therapy Plan Frequency and Duration Frequency of Treatment 1x/Week Duration of treatment (weeks) 12 Plan of Care Start Date 02/25/23 Plan of Care End Date 05/20/23 Therapeutic Interventions Therapeutic Interventions Balance Training,Gait Training ,Home Exercise Program,Joint Mobilizations,Manual Therapy, Neuromuscular Re-education, Orthotic/Prosthetic Management ,Patient/Caregiver Education, Self-Care/Home Management,Soft Tissue Mobilization,Taping, Therapeutic Activities, Therapeutic Exercises Modalities Cold Pack/Ice Massage,Electric Stimulation,Hot Packs, Infrared Therapy,Ultrasound Next Visit Focus/Plan Next Note Type Treatment Note Next Visit Plan short visits d/t insurance limits; make plan after MRI-pt may benefit from seeing ortho and/or substance abuse specialist Plan of Care Dates Plan of Care Start Date 02/25/23 Plan of Care End Date 05/20/23 Electronically Signed by: Alba Ureña, PT 02/25/23 [id number] If you are in agreement with this Plan of Care, please return a signed and dated copy. I have reviewed this Plan of Care and certify that the skilled therapy services above are required to meet the patient?s needs. Physician Signature Date Printed Name and Credentials Clinical Instructor Signature Printed Name and Credentials
--- NOTE | 2023-07-06 15:03 | PT.OPDS ---
Current Diagnoses Low back pain, unspecified (02/25/23) Muscle spasm of back (02/25/23) Wedge compression fracture of first lumbar vertebra, initial encounter for closed fracture (02/25/23) Visit Care Team Role Provider Type Bridget More DO Attending Provider Physician Family Provider Primary Care Provider Referring Provider Specialty: Family Practice Address: [address] [place] [address], [address] [place] [address], [id number] Email: [email or web address] Visit Number Visit Number 1 Discharge Summary PT-OP-B Current Condition Start: 02/24/23 13:36 Freq: Status: Active Protocol: Document 02/25/23 16:25 [facility] (Rec: 02/25/23 17:56 [facility] [id number]) Current Condition History of Current Condition Onset Date Jul 2022 Current Complaints LBP w/left leg pain History of Current Condition Pt reports the only thing he can think of is he had done a 10 mile hike then was pulling in the sailboat in and it pulled away from the dock so he had to yank. The next day he couldn't stand. He had a lot of pain for a week so went to ER (jul 2022). It was bad for 2-3 months stretching daily, eating well, hot/cold packs, rubs, drinking water. It was getting better then it was getting worse. now L knee feels really painful and med knee is numb. Notes he has bad L hip pain. Pain starts into LB then goes into hip and lat hip thigh and lower leg when coughing and sneezing. [place] and was fixing a car but couldn't so bought a different car. Pt reports he typically is a stomach sleeper but he cannot lay on stomach. He has had pain down his leg that was off /on in the past where his leg even gave out but it would go away within a few days. 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 He cannot work as he cannot stand for long. On a perfect day, he can stretch out and move for about 1 hr at max before laying down gain. Reports YUSUF recently now. He has hydrocodone, mm relaxors, gabapentin and tylenol and ibuprofen occ. He typically takes this during the day to allow him to do typical things . Sometimes he has to use the electric carts at the [employer]. Denies bowel or bladder changes. Occ LB hurts w/bowel movements. Prior Treatments and Tests xray report: Bones: 5 non-rib -bearing vertebrae are present . There is mild leftward curvature of lumbar spine centered at L3 level. Age indeterminate superior endplate anterior wedge compression deformity at L1 level is seen with up to 10 percent loss of L1 vertebral body height anteriorly. Mild degenerative endplate changes are noted throughout lumbar spine. No suspicious bony lesions. Treatment Goals Patient/Caregiver Goals get back to work, be abl eto wallk, be able to do stuff w/ son (7 years old) PT-OP-C Subjective Start: 02/24/23 13:36 Freq: Status: Active Protocol: Document 02/25/23 16:25 [facility] (Rec: 02/25/23 17:56 [facility] [id number]) Patient Questionnaires Oswestry Low Back Index Oswestry Score 20/50 OP-PT Pain Assessment Location LB Pain Location Details L LB Scale Used best:2/10 worst:10/10 Description Sharp Description- Other knee feels like hot knife under kneecap, tabor/itches Frequency Constant Radiating Location L hip w/lat thigh and lower leg pain & knee pain ( typically w/LBP) Pain Aggravating Factors Activity,Standing,Walking Pain Alleviating Factors Cold,Heat,Medication,Sitting Other Pain Alleviating Factors stretches, laying on back, R s /l PT-OP-G Mobility & Gait Start: 02/24/23 13:36 Freq: Status: Active Protocol: Document 02/25/23 16:25 [facility] (Rec: 02/25/23 17:56 [facility] [id number]) OP Gait Assessment Comments Gait Comments Dec LLE stance time, dec step length, fwd bent over PT-OP-J Posture/Palpation/Skin Start: 02/24/23 13:36 Freq: Status: Active Protocol: Document 02/25/23 16:25 [facility] (Rec: 02/25/23 17:56 [facility] [id number]) Posture Evaluation Comments Posture Comments signficiant L pelvic shear and R SB. can adjust shear if SB L; unable to palpate his iliac crest on L d/t mm tightness; pt does not bear much wt onto LLE in standing and cannot stand extended. Stands slightly flexed fwd PT-OP-K Range of Motion Start: 02/24/23 13:36 Freq: Status: Active Protocol: Document 02/25/23 16:25 [facility] (Rec: 02/25/23 17:56 [facility] [id number]) Lumbar Spine Range of Motion Lumbar Spine Active Percentage Flexion 20 Extension 10 Rotation Left 20 Rotation Right 70 Lateral Flexion Left 50 Lateral Flexion Right 75 Comments pain down leg w/L rotation; pain most w/L rot, flex & ext PT-OP-L Special Tests Start: 02/24/23 13:36 Freq: Status: Active Protocol: Document 02/25/23 16:25 [facility] (Rec: 02/25/23 17:56 [facility] [id number]) Special Tests Lumbar Spine Special Tests Straight Leg Raise Test Results R HS tightness; L pain around 30 deg PT-OP-T Assessment and Plan Start: 02/24/23 13:36 Freq: Status: Active Protocol: Document 07/06/23 15:02 [facility] (Rec: 07/06/23 15:03 [facility] [id number]) Physical Therapy Assessment Goals ROM Residential Goal (LTG) Pt will be able to demonstrate full AROM of spine w/o inc pain to allow performance of ADLs and work related activties w/o inc pain. LTG Duration 05/07/23 activities Impairment can stand no longer than 1 hr before pain requiring laying down to rest Short Term Goal (STG) Pt will be able to be upright for at least 2 hours at a time before needing to lay down. STG Duration 04/18/23 Library Monitor Goal (LTG) pt will be able to walk as he needs and stand as needed for daily activities w/o inc pain. LTG Duration 05/20/23 Assessment Summary Assessment Pt seen only for IE and did not schedule any follow ups. He did see pain medicine and is currently under their care. Pt has not been seen since IE 02/25/23 so DC d/t no longer attending PT Physical Therapy Plan Discharge Physical Therapy Discharge Reasons No Longer Attending PT
== END 2023-07-06 16:04 | disposition home or self-care (01) ==
LOC: PHYS 16:26
PROVIDERS: Absent Provider Family Medicine; Family Provider Family Medicine; PCP Family Medicine; Referring Provider Family Medicine; Visit Provider Family Medicine
DX: M54.50 Low back pain, unspecified (principal); S32.010A Wedge compression fracture of first lumbar vertebra, initial encounter for closed fracture; M62.830 Muscle spasm of back
CPT/HCPCS: 97163

== ENCOUNTER → 2023-02-26 19:15 | Outpatient (CLI) | payer OTHER, MEDICAID, SELFPAY ==
--- NOTE | 2023-02-26 19:16 | DI.MRI.S_ITS ---
PROCEDURE: MR LUMBAR SPINE WO CON INDICATIONS: low back pain w radiculopathy TECHNIQUE: Noncontrast sagittal T1 spin echo and T2 fast echo, sagittal STIR, and T2 fast spin echo through the lumbar spine. In cases with scoliosis, additional coronal T2 fast spin echo may be performed. COMPARISON: None. FINDINGS: Image quality: Excellent. Alignment and Curvature: No spondylolisthesis. Focal kyphosis is present at L1-2. Bone Marrow: Marrow is of normal overall signal. Anterior wedging is present at L1. No marrow edema suggesting this is a chronic process. No acute vertebral body compression fractures. Spinal Cord: Conus medullaris terminates at the L1 level. Visualized cord demonstrates normal signal and size. Paraspinous Soft Tissues: No paravertebral masses. T12-L1: Normal appearance. L1-L2: Moderate disc desiccation and height loss. Broad-based disc bulge. Mild canal stenosis. No foraminal stenosis. L2-L3: Normal appearance. L3-L4: Normal appearance. L4-L5: Mild disc desiccation and height loss. Moderate facet ligamentum flavum hypertrophy. Mild canal stenosis. Mild right foraminal stenosis. L5-S1: Moderate disc desiccation and height loss. There is a broad-based central and left paracentral disc bulge which narrows the left lateral recess and displaces the exiting nerve root posteriorly. A focal high-intensity zone is present within this disc bulge. Mild to moderate bilateral foraminal stenosis. No canal stenosis. IMPRESSION: 1. Chronic appearing compression deformity at L1 with mild kyphotic deformity present. 2. Central and left paracentral L5-S1 broad-based disc bulge which displaces the exiting left nerve root posteriorly. 3. 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 4. Mild to moderate bilateral L5-S1 foraminal stenosis. No other significant foraminal narrowing of the lumbar spine. Dictated by: Yuliet Rey M.D. on 02/27/2023 at 9:32 Approved by: Yuliet Rey M.D. on 02/27/2023 at 9:38
== END ==
PROVIDERS: Family Provider Family Medicine; PCP Family Medicine; Referring Provider Family Medicine; Visit Provider Family Medicine
DX: M51.37 Other intervertebral disc degeneration, lumbosacral region (principal); M48.56XA Collapsed vertebra, not elsewhere classified, lumbar region, initial encounter for fracture; M48.07 Spinal stenosis, lumbosacral region; M54.50 Low back pain, unspecified
CPT/HCPCS: 72148

== ENCOUNTER 2023-04-22 07:54 | Outpatient (CLI) | payer OTHER, MEDICAID, SELFPAY ==
--- NOTE | 2023-04-22 07:55 | DI.RAD.S_ITS ---
PROCEDURE: PAIN L/S TRANSFORAMINAL INJECT INDICATIONS: SPONDYLOSIS COMPARISON: None. FINDINGS: Fluoroscopic spot filming was performed to verify placement of spinal needles at the lower lumbar level(s), as labeled on the films. Appropriate location(s) of the needle tip(s) was confirmed by injection of iodinated contrast. IMPRESSION: Needle placement as above. Dictated by: Kelli Trammell M.D. on 04/22/2023 at 11:48 Approved by: Kelli Trammell M.D. on 04/22/2023 at 11:49
[2023-04-22 08:00] VITALS: BP 152/101; PULSE 83; RESP 16; TEMP 36.6; O2SAT 98
[2023-04-22 08:20] VITALS: BP 145/87; PULSE 74; RESP 16; O2SAT 98
[2023-04-22] MEDS: DEXAMETHASONE 10 MG/ML VIAL 20 MG INJ (08:22)
[2023-04-22] MEDS: IOPAMIDOL 15 ML VIAL 3 ML INJ (08:22)
[2023-04-22 08:25] VITALS: BP 141/88; PULSE 72; RESP 15; O2SAT 99
[2023-04-22 08:30] VITALS: BP 142/88; PULSE 70; RESP 16; O2SAT 99
[2023-04-22 08:35] VITALS: BP 148/102; PULSE 69; RESP 20; O2SAT 99
--- NOTE | 2023-04-22 08:39 | P.PCN_ITS ---
Date/Time/Diagnoses Date of procedure: 04/22/23 Time of procedure: 08:00 Procedure Notes Physician: Manny Ackerman Total Fluoroscopy time (seconds): 24 Total sedation minutes: 0 Procedure in detail & Post-procedure care: Left L5-S1 Transforaminal Epidural Steroid Injection Indications: Darwin is presenting for treatment of lumbar radiculopathy with low back and leg pain. Preoperative diagnosis: Lumbar radiculopathy Postoperative diagnosis: Same Focused Examination: Ax3 Mood and affect are normal Vital Signs: VSS Consent: Following review of allergies and potential side effects/complications, including, but not necessarily limited to, infection, allergic reaction, local tissue breakdown, stroke, temporary or permanent nerve injury, paralysis, and possible , the patient indicated that they understood and agreed to procee d.? An informed consent document was signed by the patient, witnessed by a nurse and placed in the patient's chart.? Additionally, other treatment options including medications and physical therapy were reviewed with the patient. All questions were answered. Site was then marked. Anesthesia: Local Position: Prone Monitoring: NIBP, Pulse oximetry, 3 lead EKG Needle used: 22G, 5 inch spinal needle Contrast: Isovue 300M Injectate: 15 mg Dexamethasone mixed with 1% lidocaine 1.5 ml Technique: The skin was prepped with chloraprep and draped in a sterile fashion. Time out was performed as per protocol. Oxygen applied via NC. Skin and subcutaneous structures of the needle entry site were infiltrated with 3mL of lidocaine 1%. Under fluoroscopic guidance, using an ipsilateral oblique view,?a 22 gauge 5 inch needle was advanced to the base of the left L5?pedicle.? The needle was advanced to the superio-posterior aspect of the neural foramen under lateral view.? Oblique and AP views were rechecked. No paresthesias noted by the patient during needle placement. In AP view and utilizing real-time digital subtraction fluoroscopy, 2 ml contrast was slowly injected. Epidural spread was observed without evidence for intravascular nor intrathecal uptake. Contrast spread was seen craniocaudally. The above injectate was then administered, and the needle was subsequently withdrawn. Band-Aids applied to injection sites. EBL: less than 1 ml Complications: None Post Procedure: Patient was taken to the recovery and monitored. The patient was provided a Pain Log to continue to record the patient's response to the target- specific procedure prior to the patient's follow-up visit with the referring y sician. Patient was stable upon discharge. Detailed post procedure instructions were provided. Patient was asked to call in the event of worsening pain, fever, weakness, numbness or bladder or bowel incontinence.
[2023-04-22 08:40] VITALS: BP 145/104; PULSE 73; RESP 20; O2SAT 97
== END 2023-04-22 09:20 | disposition home or self-care (01) ==
PROVIDERS: Family Provider Family Medicine; PCP Family Medicine; Referring Provider Anesthesiology; Visit Provider Anesthesiology
DX: M54.16 Radiculopathy, lumbar region (principal)
CPT/HCPCS: 64483; J1100

== ENCOUNTER → 2023-05-05 14:00 | Outpatient (CLI) | payer OTHER, MEDICAID, SELFPAY ==
[2023-05-05 14:49] LABS: HEMOLYSIS < 15 (0-50); Iron 135 ug/dL (49-181)
[2023-05-05 14:51] LABS: Alanine Aminotransferase 53 IU/L (<50); Albumin 4.3 g/dL (3.5-5.0); Albumin Globulin Ratio 1.5 (1.0-2.8); Alkaline Phosphatase 59 U/L (38-126); Aspartate Aminotransferase 48 IU/L (17-59); Bilirubin Total 0.6 mg/dL (0.2-1.3); Bilirubin Unconjugated 0.5 mg/dL (0.0-1.1); Globulin 2.9 g/dL (1.7-4.1); HEMOLYSIS < 15 (0-50); Total Protein 7.2 g/dL (6.3-8.2)
[2023-05-05 15:02] LABS: Percent Iron Saturation 39 % (20-50); Total Iron Binding Capacity 347 ug/dL (261-462); Transferrin 240 mg/dL (206-381)
[2023-05-06 06:05] LABS: Ceruloplasmin 17.8 mg/dL (16.0-31.0)
[2023-05-08 01:13] LABS: Hepatitis B Surf Ab Qualitativ Non Reactive (.)
[2023-05-08 17:32] LABS: Hepatitis B Surface Antigen NEGATIVE s/c (NEGATIVE)
[2023-05-08 17:50] LABS: Hep C Virus Ab w/Reflex Quant NEGATIVE s/c (NEGATIVE)
== END ==
PROVIDERS: Family Provider Family Medicine; PCP Family Medicine; Referring Provider Family Medicine; Visit Provider Family Medicine
DX: R79.89 Other specified abnormal findings of blood chemistry (principal)
CPT/HCPCS: 36415; 80076; 82390; 83540; 83550; 86706; 86803; 87340